=== PATIENT | female | born 1955 | race Caucasian/White ===

== ENCOUNTER 2017-06-02 13:14 | Emergency (ER) | payer OTHER ==
[2017-06-02 13:24] VITALS: TEMP 99.8; BMI 37.1
[2017-06-02] MEDS ORDERED: IBUPROFEN 600 MG TABLET (FP) PO ONE (14:32)
--- NOTE | 2017-06-02 14:32 | PDOC ---
History of Present Illness - General Chief Complaint: Cold Symptoms Stated Complaint: COLD SYMPTOMS Time Seen by Provider: 06/02/17 14:16 History Source: Patient Exam Limitations: No Limitations - History of Present Illness Initial Comments: 06/02/17 14:55 61-year-old female presents to the ED with complaints of sore throat, cough, nasal congestion, ear pain, and inability sleep at night secondary to coughing. Patient states has had no fever, chills, shortness of breath, wheezing, lower extremity edema, chest pain, or abdominal pain. Patient states history of hypertension but denies history of diabetes or respiratory illnesses. Patient denies smoking, recent travel, recent illness. Patient has not taken anything [id number] was giving it time to resolve. Timing/Duration: reports: other (2-3 days) Past History - Past Medical History Allergies/Adverse Reactions: Allergies Allergy/AdvReac Type Severity Reaction Status Date / Time No Known Allergies Allergy Verified 06/02/17 13:21 Home Medications: Ambulatory Orders Azithromycin [Zithromax Tri-Escobar (3 DAYS) -] 500 mg PO DAILY #3 tablet 06/02/17 Erythromycin 0.5% Eye Ointment [Erythromycin 0.5% Eye Ointment -] 1 applic OU BID #1 tube 06/02/17 HTN: Yes Hypercholesterolemia: Yes - Psycho/Social/Smoking Cessation Hx Anxiety: No Suicidal Ideation: No Smoking History: Never smoked Have you smoked in the past 12 months: No Information on smoking cessation initiated: No Hx Alcohol Use: No Drug/Substance Use Hx: No Substance Use Type: None Patient Lives Alone: No Lives with/in: spouse/SO Respiratory Specific PMHX - Complaint Specific PMHX Bronchitis: No Review of Systems - Review of Systems Able to Perform ROS?: Yes Constitutional: No: Symptoms Reported HEENTM: Yes: Ear Pain, Nose Congestion, Throat Pain, Other (red eyes) Respiratory: Yes: Cough. No: Shortness of Breath Cardiac (ROS): No: Symptoms Reported ABD/GI: No: Symptoms Reported : No: Symptoms Reported Musculoskeletal: No: Symptoms Reported Integumentary: No: Symptoms Reported Neurological: No: Symptoms reported *Physical Exam - Vital Signs Last Vital Signs Temp Pulse Resp BP Pulse Ox 99.8 F H 78 18 152/78 100 06/02/17 13:22 06/02/17 13:22 06/02/17 13:22 06/02/17 13:22 06/02/17 13:22 - Physical Exam General Appearance: Yes: Nourished, Appropriately Dressed. No: Apparent Distress HEENT: positive: EOMI, SOFYA (noted erythema hendrickson mucousy discharge to bilateral lacrimal ducts), TMs Normal, Pharyngeal Erythema, Tonsillar Erythema. negative : Tonsillar Exudate Neck: positive: Supple. negative: Lymphadenopathy (R), Lymphadenopathy (L) Respiratory/Chest: positive: Lungs Clear, Normal Breath Sounds. negative: Respiratory Distress, Accessory Muscle Use Cardiovascular: positive: Regular Rhythm, Regular Rate. negative: Murmur Gastrointestinal/Abdominal: positive: Soft. negative: Tenderness Extremity: negative: Pedal Edema Integumentary: positive: Normal Color, Warm, Moist Medical Decision Making - Medical Decision Making 06/02/17 14:57 Patient with URI complaints. Patient on exam had bilateral conjunctivitis, erythema to the posterior pharynx and with noted dry hacking cough. Patient ordered for rapid strep, Motrin and chest x-ray 06/02/17 15:58 Rapid strep and chest x-ray negative. Patient states moderate improvement of discomfort after receiving Motrin. Discharge patient home with Z-Escobar secondary to bronchitis-like symptoms and erythromycin ointment for her conjunctivitis. *DC/Admit/Observation/Transfer Diagnosis at time of Disposition: Bronchitis Conjunctivitis Qualifiers: Conjunctivitis type: acute Acute conjunctivitis type: bacterial Laterality: bilateral Qualified Code(s): H10.33 - Unspecified acute conjunctivitis, bilateral - Discharge Dispostion Disposition: HOME Condition at time of disposition: Good - Prescriptions Prescriptions: Erythromycin 0.5% Eye Ointment [Erythromycin 0.5% Eye Ointment -] 1 applic OU BID #1 tube Azithromycin [Zithromax Tri-Escobar (3 DAYS) -] 500 mg PO DAILY #3 tablet - Referrals Referrals: Reyes Nelson MD [Primary Care Provider] - - Patient Instructions Printed Discharge Instructions: DI for Acute Bronchitis, DI for Conjunctivitis Additional Instructions: Please take antibiotics until completed. Please use ointment to the eyes as prescribed until completed. Please wash hands frequently. Please change her linens and towels daily. Please follow-up with Dr. Nelson as needed . otherwise return to ED if symptoms worsen.
[2017-06-02] MEDS ORDERED: IBUPROFEN 400 MG TABLET (FP) PO ONE (15:18)
--- NOTE | 2017-06-02 15:53 | PDOC ---
*Physical Exam - Vital Signs Last Vital Signs Temp Pulse Resp BP Pulse Ox 99.8 F H 78 18 152/78 100 06/02/17 13:22 06/02/17 13:22 06/02/17 13:22 06/02/17 13:22 06/02/17 13:22 ED Treatment Course - ADDITIONAL ORDERS Additional order review: 06/02/17 15:01 Group A Strep Rapid Antigen - Final Throat - Medications Given in the ED: ED Medications Discontinued Medications Generic Name Dose Route Start Last Admin Trade Name Kelley PRN Reason Stop Dose Admin Ibuprofen 400 mg 06/02/17 14:32 06/02/17 15:15 Motrin - PO 06/02/17 14:33 400 mg ONCE ONE Administration Medical Decision Making - Medical Decision Making 06/02/17 16:16 The patient was seen and evaluated in conjunction with ANNA Cooper under my direct supervision, ancillary studies were reviewed. I independently interviewed and evaluated the patient and I agree with the plan as outlined by ANNA Mg. *DC/Admit/Observation/Transfer Diagnosis at time of Disposition: Bronchitis Conjunctivitis Qualifiers: Conjunctivitis type: acute Acute conjunctivitis type: bacterial Laterality: bilateral Qualified Code(s): H10.33 - Unspecified acute conjunctivitis, bilateral - Discharge Dispostion Disposition: HOME Condition at time of disposition: Good - Prescriptions Prescriptions: Erythromycin 0.5% Eye Ointment [Erythromycin 0.5% Eye Ointment -] 1 applic OU BID #1 tube Azithromycin [Zithromax Tri-Escobar (3 DAYS) -] 500 mg PO DAILY #3 tablet - Referrals Referrals: Reyes Nelson MD [Primary Care Provider] - - Patient Instructions Printed Discharge Instructions: DI for Conjunctivitis, DI for Acute Bronchitis Additional Instructions: Please take antibiotics until completed. Please use ointment to the eyes as prescribed until completed. Please wash hands frequently. Please change her linens and towels daily. Please follow-up with Dr. Nelson as needed . otherwise return to ED if symptoms worsen. - Post Discharge Activity
[2017-06-02 16:06] VITALS: BP 150/70; PULSE 88
== END 2017-06-02 16:06 | disposition home or self-care (01) ==
LOC: JERFT 13:14 → JER 13:14
DX: J40 Bronchitis, not specified as acute or chronic (principal); H10.33 Unspecified acute conjunctivitis, bilateral; I10 Essential (primary) hypertension; E78.00 Pure hypercholesterolemia, unspecified
CPT/HCPCS: 71020-TC; 87070; 87430; 99281-25